=== PATIENT | female | born 1965 | race Two or more races ===

== ENCOUNTER 2019-11-30 04:54 | Emergency (ER) | payer BC, MEDICAID ==
[~2019-11-30] VITALS: Ht 165.1 cm; Wt 64.0 kg
[2019-11-30 06:10] LABS: CHLORIDE 108 mEq/L (98-107)
[2019-11-30 06:11] LABS: BASOPHILS % 0.8 % (0.0-2.0); EOSINOPHILS % 2.5 % (0.0-5.0); HEMATOCRIT. 35.1 % (36.0-48.0); HEMOGLOBIN. 11.5 g/dL (12.0-16.0); LYMPHOCYTES % 36.9 % (20.0-50.0); MEAN CORPUSCULAR VOLUME 91.3 fL (81.0-99.0); MEAN PLATELET VOLUME 7.9 fl (7.4-10.4); MONOCYTES % 6.1 % (2.0-8.0); NEUTROPHILS % 53.7 % (40.0-76.0); PLATELET 230 x1000/uL (130-400); RED BLOOD CELL COUNT 3.84 mill/uL (4.2-5.4); RED CELL DISTRIBUTION WIDTH 14.6 % (11.6-14.6)
[2019-11-30] MEDS ORDERED: ASPIRIN 325MG EC TABLET PO ONE (07:15)
[2019-11-30 13:48] VITALS: BP 109/69
== END 2019-11-30 14:04 | disposition left against medical advice (07) ==
LOC: ER 04:54 → EDBEDREQ 08:10 → EDBEDREQTM 08:10 → ER 14:04 → CANBEDREQ 15:25
DX: R07.89 Other chest pain (principal); R00.2 Palpitations; Z11.59 Encounter for screening for other viral diseases; D64.9 Anemia, unspecified; R79.89 Other specified abnormal findings of blood chemistry; E03.9 Hypothyroidism, unspecified; Z96.649 Presence of unspecified artificial hip joint
CPT/HCPCS: 36415; 71045; 80053; 83880; 84484; 85025; 87635; 93005; 99285; C9803